=== PATIENT | female | born 1980 | race Caucasian/White ===

== ENCOUNTER 2022-12-07 11:21 | Emergency (ER) | payer OTHER ==
[~2022-12-07] VITALS: Ht 162.6 cm; Wt 137.0 kg
[2022-12-07] MEDS ORDERED: FLONASE16 GM NS (14:45)
[2022-12-07] MEDS ORDERED: ANALPRAM HC 2.530 GM RECTAL (19:36)
== END 2022-12-07 20:46 | disposition home or self-care (01) ==
LOC: ER 11:21
DX: K62.5 Hemorrhage of anus and rectum (principal); K60.2 Anal fissure, unspecified